=== PATIENT | female | born 1955 | race Hispanic/Latino ===

== ENCOUNTER 2024-01-18 10:33 | Inpatient (IN) | payer MEDICARE ==
[~2024-01-18] VITALS: Ht 157.5 cm; Wt 120.2 kg
[2024-01-18] MEDS: METOCLOPRAMIDE HCL 10 MG/2ML VIAL IV ONE (14:06)
[2024-01-18] MEDS: SUCRALFATE 1 GM TAB PO STA (14:06)
[2024-01-18] MEDS: DONNATAL/LIDOCAINE/MAALOX 30 ML SUSP PO ONE (14:06)
[2024-01-18] MEDS: SODIUM CHLORIDE 0.9% 1000ML 1,000 ML IV ONE ×2 (14:06→18:45)
[2024-01-18 14:19] LABS: BASOPHILS # (AUTO) 0.1 (0.0-0.1); BASOPHILS % 0.5 % (0.0-1.0); EOSINOPHILS # (AUTO) 0.1 (0.0-0.4); EOSINOPHILS % 0.9 % (0.0-6.0); HEMATOCRIT 45.9 % (34.2-44.1); HEMOGLOBIN 15.6 g/dL (12.0-16.0); LYMPHOCYTES # (AUTO) 4.3 (1.0-3.2); LYMPHOCYTES % 33.7 % (18.0-39.1); MEAN CORPUSCULAR HEMOGLOBIN 28.9 pg (28-32); MEAN CORPUSCULAR VOLUME 85.2 fL (81-99); MONOCYTES # (AUTO) 1.2 (0.2-0.8); MONOCYTES % 9.4 % (4.4-11.3); PLATELET COUNT 407 x10e3/uL (140-360); RED BLOOD COUNT 5.39 x10e6/uL (3.6-5.1); RED CELL DISTRIBUTION WIDTH 15.2 % (11.7-14.4); WHITE BLOOD COUNT 12.78 x10e3/uL (4.8-10.8)
[2024-01-18 14:33] LABS: ALBUMIN 3.1 g/dL (3.5-5.0); ALBUMIN/GLOBULIN RATIO 0.6 (0.8-2.0); BILIRUBIN,TOTAL 0.5 mg/dL (0.2-1.2); CALCIUM 10.3 mg/dL (8.4-10.2); CREATININE, SERUM 1.43 mg/dL (0.57-1.11); TOTAL PROTEIN 8.5 g/dL (6.5-8.1)
[2024-01-18 15:39] LABS: ETHANOL < 10.0 mg/dL (0.0-10.0); SALICYLATE < 5.0 mg/dL (0-30)
[2024-01-18] MEDS ORDERED: IOPAMIDOL 370 MG/ML 100 ML INFUS..BTL INJ ONE (16:36)
[2024-01-18] MEDS: SODIUM CHLORIDE 0.9% 1000ML 1,000 ML IV SCH (19:01)
[2024-01-18 19:03] VITALS: PULSE 90; RESP 21; TEMP 98
[2024-01-18 22:05] VITALS: BP 123/61; PULSE 93; RESP 20; TEMP 97.8; O2SAT 96
[2024-01-18 22:16] VITALS: BP 123/61; PULSE 93; RESP 20; TEMP 97.8; O2SAT 96
[2024-01-18 22:52] VITALS: BP 123/61; PULSE 93; RESP 20; TEMP 97.8; O2SAT 96
[2024-01-18] MEDS ORDERED: FAMOTIDINE40 MG PO (23:11)
[2024-01-18] MEDS ORDERED: ONDANSETRON HCL8 MG PO (23:11)
[2024-01-18] MEDS ORDERED: DICYCLOMINE HCL10 MG (23:11)
[2024-01-19] VITALS (8 sets, daily range): BP systolic 109–133; BP diastolic 46–71; PULSE 90–98; RESP 16–21; TEMP 97.5–98.1; O2SAT 93–100
[2024-01-19] MEDS: ONDANSETRON HCL INJ 2MG/ML 2ML 2 MG/ML VIAL IV PRN (04:24)
[2024-01-19] MEDS: Morphine 2mg Syringe 2 MG/ML SYR IV PRN (04:25)
[2024-01-19 07:50] LABS: BASOPHILS # (AUTO) 0.1 (0.0-0.1); BASOPHILS % 0.5 % (0.0-1.0); EOSINOPHILS # (AUTO) 0.2 (0.0-0.4); EOSINOPHILS % 1.8 % (0.0-6.0); HEMATOCRIT 37.5 % (34.2-44.1); HEMOGLOBIN 12.6 g/dL (12.0-16.0); LYMPHOCYTES # (AUTO) 3.7 (1.0-3.2); LYMPHOCYTES % 33.7 % (18.0-39.1); MEAN CORPUSCULAR HEMOGLOBIN 29.2 pg (28-32); MEAN CORPUSCULAR HGB CONC 33.6 g/dL (31-35); MEAN CORPUSCULAR VOLUME 86.8 fL (81-99); MONOCYTES # (AUTO) 1.3 (0.2-0.8); MONOCYTES % 11.5 % (4.4-11.3); NEUTROPHILS # (AUTO) 5.7 (2.1-6.9); PLATELET COUNT 324 x10e3/uL (140-360); RED BLOOD COUNT 4.32 x10e6/uL (3.6-5.1); RED CELL DISTRIBUTION WIDTH 15.3 % (11.7-14.4); WHITE BLOOD COUNT 10.95 x10e3/uL (4.8-10.8)
[2024-01-19 08:20] LABS: ALBUMIN 2.3 g/dL (3.5-5.0); ALBUMIN/GLOBULIN RATIO 0.6 (0.8-2.0); ANION GAP 17.4 mmol/L (8-16); BILIRUBIN,TOTAL 0.4 mg/dL (0.2-1.2); CALCIUM 8.2 mg/dL (8.4-10.2); CREATININE, SERUM 0.91 mg/dL (0.57-1.11)
[2024-01-19 08:32] LABS: POTASSIUM 2.4 mmol/L (3.5-5.1)
[2024-01-19] MEDS: POTASSIUM CHLORIDE 20MEQ/100ML 100 ML IV ONE (09:54)
[2024-01-19] MEDS ORDERED: SIMETHICONE 80 MG CHEW PO PRN (12:00)
[2024-01-19] MEDS ORDERED: METOPROLOL TARTRATE INJ 1 MG/ML VIAL IV PRN (12:00)
[2024-01-19] MEDS ORDERED: DOCUSATE SODIUM 100 MG CAP PO PRN (12:00)
[2024-01-19] MEDS ORDERED: ALBUTEROL/IPRATROPIUM 3 ML NEB NEB PRN (12:00)
[2024-01-19] MEDS ORDERED: MELATONIN 3 MG TAB PO PRN (12:00)
[2024-01-19] MEDS ORDERED: ACETAMINOPHEN 325 MG TAB PO PRN (12:00)
[2024-01-19] MEDS: PANTOPRAZOLE SOD 40 MG TABEC PO SCH (13:09)
[2024-01-19] MEDS: GUAIFENESIN/DEXTROMETHORPHAN LIQD 5 ML UDC NG PRN (13:09)
[2024-01-19] MEDS ORDERED: PROMETHAZINE 12.5MG/ NACL 0.9% 12.5 MG/50 ML BAG IV PRN (17:30)
[2024-01-19 17:37] LABS: CHOL/HDL RATIO 5.2 (3.0-3.6)
[2024-01-19] MEDS: POTASSIUM CHLORIDE 20MEQ/100ML 100 ML IV SCH (18:08)
[2024-01-20] VITALS (8 sets, daily range): BP systolic 105–125; BP diastolic 54–61; PULSE 89–97; RESP 14–22; TEMP 97.6–98.2; O2SAT 95–100
[2024-01-20 06:16] LABS: BASOPHILS # (AUTO) 0.1 (0.0-0.1); BASOPHILS % 0.6 % (0.0-1.0); EOSINOPHILS # (AUTO) 0.3 (0.0-0.4); EOSINOPHILS % 3.7 % (0.0-6.0); HEMATOCRIT 37.7 % (34.2-44.1); HEMOGLOBIN 12.3 g/dL (12.0-16.0); LYMPHOCYTES # (AUTO) 3.4 (1.0-3.2); LYMPHOCYTES % 40.3 % (18.0-39.1); MEAN CORPUSCULAR HEMOGLOBIN 28.8 pg (28-32); MEAN CORPUSCULAR HGB CONC 32.6 g/dL (31-35); MEAN CORPUSCULAR VOLUME 88.3 fL (81-99); MONOCYTES # (AUTO) 1.1 (0.2-0.8); MONOCYTES % 13.2 % (4.4-11.3); NEUTROPHILS # (AUTO) 3.5 (2.1-6.9); NEUTROPHILS % 41.6 % (38.7-80.0); PLATELET COUNT 299 x10e3/uL (140-360); RED BLOOD COUNT 4.27 x10e6/uL (3.6-5.1); RED CELL DISTRIBUTION WIDTH 15.8 % (11.7-14.4); WHITE BLOOD COUNT 8.34 x10e3/uL (4.8-10.8)
[2024-01-20 07:26] LABS: ANION GAP 16.7 mmol/L (8-16); CREATININE, SERUM 0.85 mg/dL (0.57-1.11); MAGNESIUM 1.2 MG/DL (1.3-2.1); PHOSPHORUS 2.2 MG/DL (2.3-4.7)
[2024-01-20 07:32] LABS: POTASSIUM 2.7 mmol/L (3.5-5.1)
[2024-01-20] MEDS ORDERED: GADOBENATE DIMEGLUMINE 1 ML IV ONE (07:45)
[2024-01-20] MEDS: LACTOBACILLUS ACIDOPHILUS CAPSULE PO SCH (09:00)
[2024-01-20] MEDS: SODIUM BICARBONATE 8.4% SYRING 100 ML in SODIUM CHLORIDE 0.45% 1,000 ML IV SCH (09:03)
[2024-01-20] MEDS: MAGNESIUM SULFATE 2GM/50ML 50 ML IV ONE (09:04)
[2024-01-20] MEDS: POTASSIUM CHLORIDE 20MEQ/100ML 100 ML IV ONE ×2 (10:52→17:42)
[2024-01-20] MEDS ORDERED: FENTANYL CITRATE/PF 100MCG/2 ML INJ ONE (11:41)
[2024-01-20] MEDS ORDERED: PROPOFOL IV EMULSION 10 MG/ML 50 ML VIAL IV ONE (11:44)
[2024-01-20] MEDS ORDERED: LIDOCAINE HCL 2% LOCAL INJ 5 ML SDV VIAL INJ ONE (11:44)
[2024-01-20 15:23] LABS: WBC,FECAL (FECAL LACTOFERRIN) NEGATIVE (NEGATIVE)
[2024-01-21] VITALS (11 sets, daily range): BP systolic 104–129; BP diastolic 51–69; PULSE 79–103; RESP 15–20; TEMP 97.7–98.6; O2SAT 95–100
[2024-01-21 06:02] LABS: BASOPHILS % 0.5 % (0.0-1.0); EOSINOPHILS # (AUTO) 0.2 (0.0-0.4); EOSINOPHILS % 2.5 % (0.0-6.0); HEMATOCRIT 36.9 % (34.2-44.1); LYMPHOCYTES # (AUTO) 3.4 (1.0-3.2); LYMPHOCYTES % 38.3 % (18.0-39.1); MEAN CORPUSCULAR HEMOGLOBIN 28.7 pg (28-32); MEAN CORPUSCULAR HGB CONC 32.5 g/dL (31-35); MEAN CORPUSCULAR VOLUME 88.3 fL (81-99); MONOCYTES # (AUTO) 1.1 (0.2-0.8); MONOCYTES % 12.3 % (4.4-11.3); NEUTROPHILS % 46.1 % (38.7-80.0); PLATELET COUNT 322 x10e3/uL (140-360); RED BLOOD COUNT 4.18 x10e6/uL (3.6-5.1); RED CELL DISTRIBUTION WIDTH 15.7 % (11.7-14.4); WHITE BLOOD COUNT 8.77 x10e3/uL (4.8-10.8)
[2024-01-21 06:46] LABS: ANION GAP 16.5 mmol/L (8-16); BLOOD UREA NITROGEN < 5 mg/dL (7-26); CALCIUM 7.8 mg/dL (8.4-10.2); CARBON DIOXIDE 23 mmol/L (22-29); CHLORIDE 103 mmol/L (98-107); CREATININE, SERUM 0.81 mg/dL (0.57-1.11); EST GLOMERULAR FILTRATION RATE 80 ML/MIN (>=60); GLUCOSE 88 mg/dL (74-118); MAGNESIUM 1.6 MG/DL (1.3-2.1); PHOSPHORUS 2.2 MG/DL (2.3-4.7); SODIUM 140 mmol/L (136-145)
[2024-01-21 07:06] LABS: BUN/CREATININE RATIO 6 (6-25); POTASSIUM 2.5 mmol/L (3.5-5.1)
[2024-01-21 07:39] LABS: C-REACTIVE PROTEIN 38 mg/L (0-10)
[2024-01-21] MEDS: POTASSIUM CHLORIDE 20MEQ/100ML 100 ML IV ONE (09:15)
[2024-01-21] MEDS: POTASSIUM CHLORIDE 20 MEQ TAB CR PO ONE (11:02)
[2024-01-21 14:47] LABS: ANION GAP 17.7 mmol/L (8-16); BLOOD UREA NITROGEN < 5 mg/dL (7-26); CALCIUM 7.8 mg/dL (8.4-10.2); CARBON DIOXIDE 25 mmol/L (22-29); CHLORIDE 100 mmol/L (98-107); CREATININE, SERUM 0.82 mg/dL (0.57-1.11); EST GLOMERULAR FILTRATION RATE 78 ML/MIN (>=60); GLUCOSE 97 mg/dL (74-118); SODIUM 140 mmol/L (136-145)
[2024-01-21 15:04] LABS: BUN/CREATININE RATIO 6 (6-25); POTASSIUM 2.7 mmol/L (3.5-5.1)
[2024-01-21] MEDS: POTASSIUM CHLORIDE 10MEQ EA PO ONE (18:03)
[2024-01-21] MEDS: POTASSIUM CHLORIDE 20 MEQ TAB CR PO SCH (20:43)
[2024-01-22] VITALS (10 sets, daily range): BP systolic 105–132; BP diastolic 48–94; PULSE 90–103; RESP 17–20; TEMP 98.2–99.5; O2SAT 93–100
[2024-01-22 06:39] LABS: BLOOD UREA NITROGEN < 5 mg/dL (7-26); CALCIUM 7.6 mg/dL (8.4-10.2); CARBON DIOXIDE 26 mmol/L (22-29); CHLORIDE 101 mmol/L (98-107); CREATININE, SERUM 0.78 mg/dL (0.57-1.11); EST GLOMERULAR FILTRATION RATE 83 ML/MIN (>=60); GLUCOSE 80 mg/dL (74-118); MAGNESIUM 1.5 MG/DL (1.3-2.1); PHOSPHORUS 1.5 MG/DL (2.3-4.7); SODIUM 142 mmol/L (136-145)
[2024-01-22 06:57] LABS: BUN/CREATININE RATIO 6 (6-25)
[2024-01-22] MEDS ORDERED: POTASSIUM CHLO20 ME1 PO (07:18)
[2024-01-22] MEDS ORDERED: ONDANSETRON ODT4 MG PO (07:18)
[2024-01-22] MEDS ORDERED: Docusate Sodium PO (07:18)
[2024-01-22] MEDS: POTASSIUM CHLORIDE 20 MEQ TAB CR PO STA (08:07)
[2024-01-22] MEDS: MAGNESIUM SULFATE 2GM/50ML 50 ML IV ONE (08:10)
[2024-01-22] MEDS: PROMETHAZINE HCL 25 MG TAB PO PRN (11:39)
[2024-01-22] MEDS ORDERED: DIPHENOXYLATE/ATROPINE TAB PO PRN (14:45)
[2024-01-22 14:57] LABS: AMYLASE 15 U/L (25-125); LIPASE 42 U/L (8-78)
[2024-01-22] MEDS: PANTOPRAZOLE SOD 40 MG TABEC PO ONE (16:11)
[2024-01-22] MEDS: SUCRALFATE 1 GM TAB PO SCH (16:11)
[2024-01-22] MEDS ORDERED: LACTOBACILLUS ACIDOPHILUS CAPSULE PO SCH (17:00)
[2024-01-22 22:39] LABS: CLARITY,URINE CLEAR (CLEAR); COLOR,URINE YELLOW (YELLOW)
[2024-01-22 22:40] LABS: BILIRUBIN,URINE SMALL (NEGATIVE); GLUCOSE, URINE NEGATIVE (NEGATIVE); KETONES,URINE >=160 (NEGATIVE); LEUKOCYTE ESTERASE ,URINE NEGATIVE (NEGATIVE); NITRITE,URINE NEGATIVE (NEGATIVE); PH,URINE 7 (5 - 7); PROTEIN,URINE DIPSTICK NEGATIVE (NEGATIVE); URINE UROBILINOGEN 0.2 mg/dL (0.2 - 1)
[2024-01-22 23:04] LABS: WBC,URINE (MAN) 0-5 /HPF (0-5)
[2024-01-22 23:05] LABS: BACTERIA,URINE MODERATE /HPF; EPITHELIAL CELLS,URINE MODERATE /LPF; RBC,URINE 0-5 /HPF (0-5)
[2024-01-23] VITALS (10 sets, daily range): BP systolic 104–155; BP diastolic 52–84; PULSE 74–127; RESP 17–22; TEMP 98–99; O2SAT 94–100
[2024-01-23 08:14] LABS: ENDOMYSIAL ANTIBODIES, IGA Negative (Negative)
[2024-01-23 08:28] LABS: IMMUNOGLOBULIN A 423 mg/dL (87-352); TISSUE TRANSGLUTAMINASE IGA AB <2 U/mL (0-3)
[2024-01-23 09:38] LABS: ANION GAP 19.9 mmol/L (8-16); BLOOD UREA NITROGEN < 5 mg/dL (7-26); CALCIUM 8.1 mg/dL (8.4-10.2); CARBON DIOXIDE 26 mmol/L (22-29); CHLORIDE 97 mmol/L (98-107); CREATININE, SERUM 0.83 mg/dL (0.57-1.11); EST GLOMERULAR FILTRATION RATE 77 ML/MIN (>=60); GLUCOSE 77 mg/dL (74-118); MAGNESIUM 1.8 MG/DL (1.3-2.1); PHOSPHORUS 1.3 MG/DL (2.3-4.7); SODIUM 140 mmol/L (136-145)
[2024-01-23] MEDS: PANTOPRAZOLE SOD 40 MG TABEC PO SCH (09:39)
[2024-01-23 09:48] LABS: BUN/CREATININE RATIO 6 (6-25); POTASSIUM 2.9 mmol/L (3.5-5.1)
[2024-01-23] MEDS: POTASSIUM CHLORIDE 20 MEQ TAB CR PO ONE (11:04)
[2024-01-23] MEDS: SODIUM BICARBONATE 650 MG TAB PO SCH (15:24)
[2024-01-24] VITALS (9 sets, daily range): BP systolic 94–114; BP diastolic 44–79; PULSE 71–120; RESP 18–22; TEMP 97.6–98.9; O2SAT 95–99
[2024-01-24] MEDS: SODIUM CHLORIDE 0.9% 500ML 500 ML IV ONE (06:42)
[2024-01-24 10:00] LABS: BASOPHILS # (AUTO) 0.1 (0.0-0.1); BASOPHILS % 0.6 % (0.0-1.0); EOSINOPHILS % 0.3 % (0.0-6.0); HEMATOCRIT 37.8 % (34.2-44.1); LYMPHOCYTES # (AUTO) 3.3 (1.0-3.2); LYMPHOCYTES % 30.7 % (18.0-39.1); MEAN CORPUSCULAR HEMOGLOBIN 28.6 pg (28-32); MEAN CORPUSCULAR HGB CONC 31.7 g/dL (31-35); MEAN CORPUSCULAR VOLUME 90.2 fL (81-99); MONOCYTES # (AUTO) 1.2 (0.2-0.8); MONOCYTES % 11.1 % (4.4-11.3); NEUTROPHILS # (AUTO) 6.2 (2.1-6.9); NEUTROPHILS % 56.8 % (38.7-80.0); PLATELET COUNT 303 x10e3/uL (140-360); RED BLOOD COUNT 4.19 x10e6/uL (3.6-5.1); RED CELL DISTRIBUTION WIDTH 16.4 % (11.7-14.4); WHITE BLOOD COUNT 10.84 x10e3/uL (4.8-10.8)
[2024-01-24 10:16] LABS: ANION GAP 17.8 mmol/L (8-16); BLOOD UREA NITROGEN < 5 mg/dL (7-26); CALCIUM 7.1 mg/dL (8.4-10.2); CARBON DIOXIDE 23 mmol/L (22-29); CHLORIDE 98 mmol/L (98-107); CREATININE, SERUM 0.89 mg/dL (0.57-1.11); EST GLOMERULAR FILTRATION RATE 71 ML/MIN (>=60); GLUCOSE 66 mg/dL (74-118); MAGNESIUM 1.5 MG/DL (1.3-2.1); PHOSPHORUS 1.3 MG/DL (2.3-4.7); SODIUM 136 mmol/L (136-145)
[2024-01-24 10:22] LABS: BUN/CREATININE RATIO 6 (6-25)
[2024-01-24 10:23] LABS: POTASSIUM 2.8 mmol/L (3.5-5.1)
[2024-01-24] MEDS: MAGNESIUM SULF 1GRAM/DEXTROSE 100 ML IV ONE (11:19)
[2024-01-24] MEDS: POTASSIUM CHLORIDE 20MEQ/100ML 100 ML IV ONE (12:46)
[2024-01-24] MEDS: METOCLOPRAMIDE HCL 10 MG/2ML VIAL IV SCH (12:56)
[2024-01-24] MEDS: POTASSIUM CHLORIDE 20MEQ/100ML 100 ML IV SCH (16:42)
[2024-01-25] VITALS (9 sets, daily range): BP systolic 100–151; BP diastolic 47–85; PULSE 68–116; RESP 18–22; TEMP 97.6–98.6; O2SAT 92–100
[2024-01-25] MEDS: PANTOPRAZOLE SOD 40 MG TABEC PO SCH (07:59)
[2024-01-25 10:12] LABS: ANION GAP 19.8 mmol/L (8-16); BLOOD UREA NITROGEN < 5 mg/dL (7-26); CALCIUM 7.3 mg/dL (8.4-10.2); CARBON DIOXIDE 22 mmol/L (22-29); CHLORIDE 100 mmol/L (98-107); CREATININE, SERUM 1.05 mg/dL (0.57-1.11); EST GLOMERULAR FILTRATION RATE 58 ML/MIN (>=60); GLUCOSE 75 mg/dL (74-118); MAGNESIUM 1.6 MG/DL (1.3-2.1); PHOSPHORUS 1.1 MG/DL (2.3-4.7); POTASSIUM 3.8 mmol/L (3.5-5.1); SODIUM 138 mmol/L (136-145)
[2024-01-25 10:13] LABS: BUN/CREATININE RATIO 5 (6-25)
[2024-01-26] VITALS (10 sets, daily range): BP systolic 103–127; BP diastolic 53–78; PULSE 92–119; RESP 15–20; TEMP 97.8–98.5; O2SAT 97–100
[2024-01-26] MEDS: LOPERAMIDE HCL 2 MG CAP PO PRN (11:33)
[2024-01-26] MEDS: DIPHENOXYLATE/ATROPINE TAB PO PRN (11:36)
[2024-01-26 12:03] LABS: BASOPHILS # (AUTO) 0.1 (0.0-0.1); BASOPHILS % 0.6 % (0.0-1.0); EOSINOPHILS % 0.3 % (0.0-6.0); HEMATOCRIT 37.4 % (34.2-44.1); HEMOGLOBIN 11.9 g/dL (12.0-16.0); LYMPHOCYTES % 24.2 % (18.0-39.1); MEAN CORPUSCULAR HEMOGLOBIN 28.6 pg (28-32); MEAN CORPUSCULAR HGB CONC 31.8 g/dL (31-35); MEAN CORPUSCULAR VOLUME 89.9 fL (81-99); MONOCYTES # (AUTO) 0.8 (0.2-0.8); MONOCYTES % 6.8 % (4.4-11.3); NEUTROPHILS # (AUTO) 8.4 (2.1-6.9); NEUTROPHILS % 67.5 % (38.7-80.0); PLATELET COUNT 269 x10e3/uL (140-360); RED BLOOD COUNT 4.16 x10e6/uL (3.6-5.1); RED CELL DISTRIBUTION WIDTH 17.2 % (11.7-14.4); WHITE BLOOD COUNT 12.42 x10e3/uL (4.8-10.8)
[2024-01-26 12:31] LABS: ALBUMIN/GLOBULIN RATIO 0.6 (0.8-2.0); ANION GAP 16.9 mmol/L (8-16); BILIRUBIN,TOTAL 0.8 mg/dL (0.2-1.2); CALCIUM 7.6 mg/dL (8.4-10.2); CREATININE, SERUM 1.17 mg/dL (0.57-1.11); POTASSIUM 3.9 mmol/L (3.5-5.1); TOTAL PROTEIN 5.6 g/dL (6.5-8.1)
[2024-01-26 12:42] LABS: MAGNESIUM 1.7 MG/DL (1.3-2.1); PHOSPHORUS 1.3 MG/DL (2.3-4.7)
[2024-01-26] MEDS ORDERED: Lactobacillus Acidophilus PO (16:07)
[2024-01-26] MEDS ORDERED: DIPHENOXYLATE-1 EACH PO (16:07)
[2024-01-26] MEDS ORDERED: IMODIUM2 MG PO (16:07)
[2024-01-26] MEDS ORDERED: CARAFATE1 GM PO (16:07)
[2024-01-26] MEDS ORDERED: SODIUM BICARBO650 MG PO (16:07)
== END 2024-01-26 19:26 | disposition home or self-care (01) | DRG 439 ==
LOC: ER 12:54 → ERHOLD 18:09 → MED/SURG3 21:47 → OBSVTOIN 01-19 11:57
PROVIDERS: ADMIT Internal Medicine; ATTEND Internal Medicine
PROC: 0DBE8ZX Excision of Large Intestine, Via Natural or Artificial Opening Endoscopic, Diagnostic (ICD-10-PCS; 2024-01-20)
PROC: 0DB68ZX Excision of Stomach, Via Natural or Artificial Opening Endoscopic, Diagnostic (ICD-10-PCS; principal; 2024-01-20 12:44)
PROC: 0DB98ZX Excision of Duodenum, Via Natural or Artificial Opening Endoscopic, Diagnostic (ICD-10-PCS; 2024-01-20 12:44)
DX: K85.90 Acute pancreatitis without necrosis or infection, unspecified (principal); E87.20 Acidosis, unspecified; N17.9 Acute kidney failure, unspecified; Z68.42 Body mass index [BMI] 45.0-49.9, adult; E87.6 Hypokalemia; R10.13 Epigastric pain; K29.70 Gastritis, unspecified, without bleeding; E66.01 Morbid (severe) obesity due to excess calories; K76.0 Fatty (change of) liver, not elsewhere classified; K76.9 Liver disease, unspecified; N28.1 Cyst of kidney, acquired; I72.8 Aneurysm of other specified arteries; E83.52 Hypercalcemia; E86.0 Dehydration; R19.7 Diarrhea, unspecified; Z11.52 Encounter for screening for COVID-19; K21.9 Gastro-esophageal reflux disease without esophagitis; K44.9 Diaphragmatic hernia without obstruction or gangrene; K57.30 Diverticulosis of large intestine without perforation or abscess without bleeding; R63.4 Abnormal weight loss; Z79.1 Long term (current) use of non-steroidal anti-inflammatories (NSAID); Z90.49 Acquired absence of other specified parts of digestive tract; Z90.710 Acquired absence of both cervix and uterus
CPT/HCPCS: 36415; 43239; 45330; 74177; 74183; 80048; 80053; 80061; 80320; 80329; 81001; 82150; 82784; 83036; 83516; 83605; 83630; 83690; 83735; 83993; 84100; 84132; 84443; 85025; 86039; 86140; 86256; 87045; 87177; 87324; 87328; 87449; 88305; 88342; 94799; 99284; G0378; J2001; J2270; J2405; J2765; J3475; J3480; J7030; J7040; Q9967; U0002